=== PATIENT | female | born 1950 | race Caucasian/White ===

== ENCOUNTER 2019-09-06 18:07 | Emergency (ER) | payer SELFPAY ==
[~2019-09-06] VITALS: Ht 152.4 cm; Wt 81.6 kg
[2019-09-06 18:36] VITALS: Ht 152.4 cm; Wt 81.6 kg
[2019-09-06 20:54] VITALS: BP 156/70
== END 2019-09-06 20:54 | disposition home or self-care (01) ==
LOC: ED 18:07
DX: S01.01XA Laceration without foreign body of scalp, initial encounter (principal); I10 Essential (primary) hypertension; E11.9 Type 2 diabetes mellitus without complications; W22.8XXA Striking against or struck by other objects, initial encounter; Y93.89 Activity, other specified; Y92.89 Other specified places as the place of occurrence of the external cause; Y99.8 Other external cause status
CPT/HCPCS: J2001